=== PATIENT | male | born 1995 | race Caucasian/White ===

== ENCOUNTER → 2022-05-13 15:41 | Outpatient (CLI) | payer BC, SELFPAY ==
--- NOTE | ~2022-05-13 | XR_ITS ---
XR knee LT 2V DATE: 05/13/2022 16:38 INDICATION: Left knee pain TECHNIQUE: AP and lateral views COMPARISON: None FINDINGS: No fracture or dislocation or joint effusion, periosteal reaction or bone destruction, radi opaque intra-articular loose body or chondrocalcinosis is evident. Joint spaces are well preserved. IMPRESSION: No significant abnormality Reviewed, dictated and finalized at location A. 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
== END ==
PROVIDERS: PCP Family Medicine Adolescent Medicine; Visit Provider Physician Assistant
DX: M25.562 Pain in left knee (principal)
CPT/HCPCS: 73560